=== PATIENT | female | born 1980 | race Caucasian/White ===

== ENCOUNTER 2016-10-05 23:47 | Emergency (ER) | payer OTHER ==
[~2016-10-05] VITALS: Ht 154.9 cm; Wt 65.0 kg
[~2016-10-05 23:47] MED LIST: AUGMENTIN875 MG PO; BACTRIM,SEPT1 TABLET PO; BENTYL10 MG PO; CARAFATE1 GM PO; CLEOCIN300 MG PO; DILAUDID2 MG PO; DOXYCYCLINE HY100 MG PO; FE C TABLET1 EACH PO; FOLIC ACID1 MG PO; IBUPROFEN800 MG PO; LOPRESSOR50 MG PO; LORAZEPAM0.5 MG PO; LORTAB 5-325 M1 EACH PO; METOPROLOL TART25 MG PO; METOPROLOL TART50 MG PO; MOTRIN IB200 MG PO; OXYCODONE-APAP1 EACH PO; PERCOCET 5/31 TABLET PO; PROTONIX40 MG PO; SPIRIVA RESPIMAT4 GM IH; TOPAMAX25 MG PO; TRILEPTAL300 MG PO; TYLENOL REGULA325 MG PO; VENLAFAXINE HC150 M1 PO; ZOFRAN ODT4 MG PO; ZOFRAN4 MG PO
[2016-10-06 02:09] VITALS: BP 128/96
== END 2016-10-06 02:15 | disposition home or self-care (01) ==
LOC: EME 23:47
DX: S00.93XA Contusion of unspecified part of head, initial encounter (principal); Y04.0XXA Assault by unarmed brawl or fight, initial encounter; F10.129 Alcohol abuse with intoxication, unspecified; H93.19 Tinnitus, unspecified ear; I10 Essential (primary) hypertension; R56.9 Unspecified convulsions; Z86.73 Personal history of transient ischemic attack (TIA), and cerebral infarction without residual deficits; Z86.711 Personal history of pulmonary embolism; Z98.84 Bariatric surgery status; F17.200 Nicotine dependence, unspecified, uncomplicated
CPT/HCPCS: 70450; 99281; 99284

== ENCOUNTER 2016-12-08 14:45 | Inpatient (IN) | payer OTHER ==
[~2016-12-08] VITALS: Ht 160 cm; Wt 58.8 kg
[2016-12-08] MEDS ORDERED: TRILEPTAL300 MG PO (14:55)
[2016-12-08] MEDS ORDERED: LOPRESSOR25 MG PO (14:55)
[2016-12-08] MEDS ORDERED: NORVASC5 MG PO (14:56)
[2016-12-08 15:34] LABS: HEMATOCRIT 35.3 % (36.0-46.0); MCHC 32.3 G/DL (30.0-36.0); MCV 83.5 FL (83-99); MEAN PLAT.VOLUME 9.3 uM^3 (9.5-12.4); PLATELET COUNT 195 K/uL (156-360); RBC DIS.WIDTH-CV 19.5 % (11.8-14.6); RBC DIS.WIDTH-SD 58.5 % (39-53); RED BLOOD COUNT 4.23 M/uL (3.80-5.20); WHITE BLOOD COUNT 3.8 K/uL (4.1-10.2)
[2016-12-08 15:42] LABS: CHLORIDE 102 mEq/L (99-109); POTASSIUM 3.5 mEq/L (3.7-5.4); SODIUM 137 mEq/L (136-147)
[2016-12-08 15:44] LABS: GLUCOSE 108 mg/dL (70-99)
[2016-12-08 15:45] LABS: ANION GAP 16 MEQ/L (2-14)
[2016-12-08 15:46] LABS: TOTAL BILIRUBIN 0.8 mg/dL (0.0-1.0)
[2016-12-08 15:48] LABS: ALKALINE PHOSPHATASE 129 IU/L (3-129); GFR ESTIMATE (CALCULATED) > 59 mL/min/
[2016-12-08 15:49] LABS: UREA NITROGEN (BUN) 14 mg/dL (9-23)
[2016-12-08 15:51] LABS: LIPASE 422 U/L (1.0-51.0)
[2016-12-08 15:55] LABS: ADD MIUA? YES; BILIRUBIN NEGATIVE; BLOOD MODERATE; COLOR AMBER ((YELLOW)); GLUCOSE (STRIP) NEGATIVE; KETONES 20; LEUKOCYTES TRACE; NITRITE POSITIVE; PROTEIN (STRIP) 100
[2016-12-08 15:59] LABS: QUANTITATIVE HCG 4.7 MIU/ML
[2016-12-08] MEDS ORDERED: FOLIC ACID1 MG PO (16:13)
[2016-12-08] MEDS ORDERED: SPIRIVA RESPIMAT4 GM PO (16:14)
[2016-12-08] MEDS ORDERED: LORAZEPAM0.5 MG PO (16:14)
[2016-12-08] MEDS ORDERED: MACROBID100 MG PO (16:14)
[2016-12-08 16:21] LABS: BACTERIA 2+ /HPF; EPITHELIAL CELLS 2+ /HPF; MUCUS 3+ /LPF; RED BLOOD CELLS 40-50 /HPF (0-5); UCUL ADDED? YES
[2016-12-08 19:21] VITALS: BP 123/86
[2016-12-09] VITALS: BP 110/88
[2016-12-09 03:42] VITALS: BP 114/77
[2016-12-09 07:00] VITALS: BP 125/89
[2016-12-09 07:15] LABS: ANION GAP 10 MEQ/L (2-14); CHLORIDE 102 MEQ/L (99-109); GFR ESTIMATE (CALCULATED) > 59 mL/min/; LIPASE 472 U/L (1.0-51.0); POTASSIUM 3.4 MEQ/L (3.7-5.4); SAMPLE HEMOLYSIS CHECK 0; SAMPLE ICTERIC CHECK 0; SAMPLE LIPEMIA CHECK 0; SODIUM 136 MEQ/L (136-147); UREA NITROGEN (BUN) 14 mg/dL (9-23)
[2016-12-09 07:20] LABS: GLUCOSE 80 mg/dL (70-99)
[2016-12-09 07:28] LABS: HEMATOCRIT 28.5 % (36.0-46.0); MCH 27.2 PG (29.0-34.0); MCHC 31.9 G/DL (30.0-36.0); MCV 85.1 FL (83-99); RBC DIS.WIDTH-CV 19.6 % (11.8-14.6); RBC DIS.WIDTH-SD 60.6 % (39-53); RED BLOOD COUNT 3.35 M/uL (3.80-5.20); WHITE BLOOD COUNT 2.6 K/uL (4.1-10.2)
[2016-12-09 08:00] LABS: MEAN PLAT.VOLUME 10.1 uM^3 (9.5-12.4); PLATELET COUNT 125 K/uL (156-360)
[2016-12-09 11:42] VITALS: BP 140/97
[2016-12-09 14:54] LABS: POINT-OF-CARE METER ID UU14174225
[2016-12-09 15:53] VITALS: BP 149/105
[2016-12-09 19:29] VITALS: BP 143/91
[2016-12-10] VITALS (7 sets, daily range): BP systolic 130–149; BP diastolic 82–98
[2016-12-11 03:59] VITALS: BP 137/89
[2016-12-11 07:25] VITALS: BP 141/98
[2016-12-11] MEDS ORDERED: ENDOCET 5-3251 EACH PO (11:01)
== END 2016-12-11 13:54 | disposition home or self-care (01) | DRG 439 ==
LOC: EME → EDBD 14:45 → 5SOUTH 16:58 → EDOF 16:58 → 5SOUTH 19:16
PROVIDERS: Internal Medicine; Nurse Practitioner Family
DX: K85.20 Alcohol induced acute pancreatitis without necrosis or infection (principal); N39.0 Urinary tract infection, site not specified; B96.20 Unspecified Escherichia coli [E. coli] as the cause of diseases classified elsewhere; F10.24 Alcohol dependence with alcohol-induced mood disorder; R74.0 Nonspecific elevation of levels of transaminase and lactic acid dehydrogenase [LDH]; K70.0 Alcoholic fatty liver; K25.9 Gastric ulcer, unspecified as acute or chronic, without hemorrhage or perforation; I10 Essential (primary) hypertension; J45.909 Unspecified asthma, uncomplicated; G40.909 Epilepsy, unspecified, not intractable, without status epilepticus; F17.210 Nicotine dependence, cigarettes, uncomplicated; Z86.73 Personal history of transient ischemic attack (TIA), and cerebral infarction without residual deficits; Z98.84 Bariatric surgery status; Z86.711 Personal history of pulmonary embolism
CPT/HCPCS: 74177; 80048; 80053; 81003; 82948; 83690; 84702; 85027; 87040; 87077; 87086; 87186; 99281; 99285; J1650; J1885; J1956; J2270; J2405; J7030

== ENCOUNTER 2017-01-30 14:39 | Emergency (ER) | payer OTHER ==
[~2017-01-30] VITALS: Ht 154.9 cm; Wt 65.0 kg
[~2017-01-30 14:39] MED LIST changes: +ENDOCET 5-3251 EACH PO; +LOPRESSOR25 MG PO; +MACROBID100 MG PO; +NORVASC5 MG PO; +SPIRIVA RESPIMAT4 GM PO
[2017-01-30 15:45] VITALS: BP 102/76
== END 2017-01-30 16:15 | disposition left against medical advice (07) ==
LOC: EME → EDBD 14:39 → EME 14:39
DX: T40.1X1A Poisoning by heroin, accidental (unintentional), initial encounter (principal); I10 Essential (primary) hypertension; Z87.442 Personal history of urinary calculi; R56.9 Unspecified convulsions; Z86.73 Personal history of transient ischemic attack (TIA), and cerebral infarction without residual deficits; Z86.711 Personal history of pulmonary embolism; Z98.84 Bariatric surgery status; F17.200 Nicotine dependence, unspecified, uncomplicated
CPT/HCPCS: 99281; 99284; J2310

== ENCOUNTER 2017-02-13 17:01 | Inpatient (IN) | payer OTHER ==
[~2017-02-13] VITALS: Ht 157.5 cm; Wt 53.3 kg
[2017-02-13 17:41] LABS: MCH 28.6 PG (29.0-34.0); MCHC 32.5 G/DL (30.0-36.0); PLATELET COUNT 186 K/uL (156-360); RBC DIS.WIDTH-CV 20.1 % (11.8-14.6); RBC DIS.WIDTH-SD 63.4 % (39-53); RED BLOOD COUNT 4.09 M/uL (3.80-5.20); WHITE BLOOD COUNT 3.7 K/uL (4.1-10.2)
[2017-02-13 17:50] LABS: CHLORIDE 104 mEq/L (99-109); SODIUM 142 mEq/L (136-147)
[2017-02-13 17:52] LABS: GLUCOSE 89 mg/dL (70-99)
[2017-02-13 17:53] LABS: ANION GAP 17 MEQ/L (2-14)
[2017-02-13 17:56] LABS: GFR ESTIMATE (CALCULATED) > 59 mL/min/
[2017-02-13 17:57] LABS: UREA NITROGEN (BUN) 11 mg/dL (9-23)
[2017-02-13 18:04] LABS: TROP-I INTERPRETATION NEGATIVE; TROPONIN-I < 0.01 ng/mL (0.0-0.30)
[2017-02-13 19:50] LABS: ALKALINE PHOSPHATASE 373 IU/L (3-129)
[2017-02-13 19:52] LABS: DIRECT BILIRUBIN 0.7 mg/dL (0.0-0.3)
[2017-02-13 20:55] LABS: LIPASE 488 U/L (1.0-51.0)
[2017-02-13 21:42] LABS: ADD MIUA? YES; BILIRUBIN NEGATIVE; BLOOD MODERATE; COLOR AMBER ((YELLOW)); GLUCOSE (STRIP) NEGATIVE; KETONES 5; LEUKOCYTES NEGATIVE; NITRITE NEGATIVE; PROTEIN (STRIP) 100; SPECIFIC GRAVITY 1.013 (1.000-1.030)
[2017-02-13 22:14] LABS: BACTERIA 2+ /HPF; EPITHELIAL CELLS 3+ /HPF; MUCUS 3+ /LPF; RED BLOOD CELLS 30-40 /HPF (0-5); WHITE BLOOD CELLS 0-5 /HPF (0-5)
[2017-02-14 03:18] LABS: MAGNESIUM 1.5 mg/dL (1.3-2.7)
[2017-02-14 03:44] VITALS: BP 118/70
[2017-02-14 05:30] LABS: EOSINOPHIL (%) 0.3 % (0-5); HEMATOCRIT 28.9 % (36.0-46.0); INSTRUMENT ABS NEUTROPHIL CT 2.2 K/uL; LYMPHOCYTE COUNT 0.6 K/uL (1.0-2.8); MCH 28.9 PG (29.0-34.0); MCHC 31.5 G/DL (30.0-36.0); MCV 91.7 FL (83-99); MEAN PLAT.VOLUME 9.4 uM^3 (9.5-12.4); MONOCYTE (%) 9.9 % (3-12); MONOCYTE COUNT 0.3 K/uL (0-0.8); NEUTROPHIL (%) 68.6 % (45-76); NEUTROPHIL COUNT 2.2 K/uL (1.8-6.4); PLATELET COUNT 137 K/uL (156-360); RBC DIS.WIDTH-CV 20.4 % (11.8-14.6); RED BLOOD COUNT 3.15 M/uL (3.80-5.20); WHITE BLOOD COUNT 3.1 K/uL (4.1-10.2)
[2017-02-14 05:49] LABS: ALKALINE PHOSPHATASE 285 IU/L (3-129); ANION GAP 22 MEQ/L (2-14); CHLORIDE 96 MEQ/L (99-109); GFR ESTIMATE (CALCULATED) > 59 mL/min/; LIPASE 281 U/L (1.0-51.0); POTASSIUM 3.1 MEQ/L (3.7-5.4); SAMPLE HEMOLYSIS CHECK 0; SAMPLE ICTERIC CHECK 0; SAMPLE LIPEMIA CHECK 0; SODIUM 134 MEQ/L (136-147); TOTAL BILIRUBIN 0.9 MG/DL (0.0-1.0); UREA NITROGEN (BUN) 11 mg/dL (9-23)
[2017-02-14 06:37] LABS: GLUCOSE 36 mg/dL (70-99)
[2017-02-14 06:39] VITALS: BP 134/71
[2017-02-14 08:22] LABS: MAGNESIUM 1.4 mg/dl (1.3-2.7)
[2017-02-14 14:39] LABS: POINT-OF-CARE METER ID UU13113725
[2017-02-14 15:00] VITALS: BP 138/81
[2017-02-14 23:55] VITALS: BP 148/96
[2017-02-15 00:37] LABS: POINT-OF-CARE METER ID UU13113725
[2017-02-15 03:29] VITALS: BP 130/86
[2017-02-15 06:56] VITALS: BP 126/90
[2017-02-15 07:47] LABS: HEMATOCRIT 27.7 % (36.0-46.0); MCHC 32.1 G/DL (30.0-36.0); MCV 90.2 FL (83-99); MEAN PLAT.VOLUME 10.2 uM^3 (9.5-12.4); PLATELET COUNT 174 K/uL (156-360); RBC DIS.WIDTH-CV 19.9 % (11.8-14.6); RBC DIS.WIDTH-SD 64.5 % (39-53); RED BLOOD COUNT 3.07 M/uL (3.80-5.20); WHITE BLOOD COUNT 2.5 K/uL (4.1-10.2)
[2017-02-15 08:43] LABS: ALKALINE PHOSPHATASE 218 IU/L (3-129); ANION GAP 9 MEQ/L (2-14); CHLORIDE 102 MEQ/L (99-109); GFR ESTIMATE (CALCULATED) > 59 mL/min/; LIPASE 302 U/L (1.0-51.0); POTASSIUM 3.4 MEQ/L (3.7-5.4); SAMPLE HEMOLYSIS CHECK 0; SAMPLE ICTERIC CHECK 0; SAMPLE LIPEMIA CHECK 0; SODIUM 137 MEQ/L (136-147); UREA NITROGEN (BUN) 5 mg/dL (9-23)
[2017-02-15 08:44] LABS: GLUCOSE 117 mg/dL (70-99); TOTAL BILIRUBIN 1.1 MG/DL (0.0-1.0)
[2017-02-15 09:21] LABS: MAGNESIUM 1.2 mg/dl (1.3-2.7)
[2017-02-15 10:15] LABS: POINT-OF-CARE METER ID UU13113725
[2017-02-15 11:00] VITALS: BP 119/82
[2017-02-15 11:18] LABS: ADD MIUA? YES; BILIRUBIN NEGATIVE; BLOOD NEGATIVE; COLOR AMBER ((YELLOW)); GLUCOSE (STRIP) NEGATIVE; KETONES NEGATIVE; LEUKOCYTES SMALL; NITRITE POSITIVE; PROTEIN (STRIP) NEGATIVE; SPECIFIC GRAVITY 1.009 (1.000-1.030); UROBILINOGEN 0.2 MG/DL (0.2-1.0)
[2017-02-15 11:39] LABS: AMPHETAMINES QUANT VALUE 0 NG/ML; BARBITUATES QUANT VALUE 0 NG/ML; BENZODIAZEPINES QUANT VALUE 0 NG/ML; BENZODIAZEPINES, URINE SCREEN Negative (200 ng/mL); MARIJUANA QUANT VALUE 0 NG/ML; PHENCYCLIDINE QUANT VALUE 0 NG/ML
[2017-02-15 13:20] LABS: BACTERIA 4+ /HPF; EPITHELIAL CELLS 1+ /HPF; MUCUS 2+ /LPF; RED BLOOD CELLS 0-5 /HPF (0-5); UCUL ADDED? YES
[2017-02-15 15:10] VITALS: BP 116/82
[2017-02-15 18:26] LABS: POINT-OF-CARE METER ID UU13113725
[2017-02-15 19:05] VITALS: BP 132/77
[2017-02-15 23:07] VITALS: BP 121/69
[2017-02-16 03:48] VITALS: BP 112/74
[2017-02-16 06:58] LABS: EOSINOPHIL (%) 3.2 % (0-5); EOSINOPHIL COUNT 0.1 K/uL (0-0.3); HEMATOCRIT 23.2 % (36.0-46.0); INSTRUMENT ABS NEUTROPHIL CT 0.7 K/uL; LYMPHOCYTE COUNT 0.7 K/uL (1.0-2.8); MCH 29.3 PG (29.0-34.0); MCHC 32.3 G/DL (30.0-36.0); MCV 90.6 FL (83-99); MEAN PLAT.VOLUME 9.8 uM^3 (9.5-12.4); MONOCYTE COUNT 0.2 K/uL (0-0.8); NEUTROPHIL (%) 41.2 % (45-76); NEUTROPHIL COUNT 0.7 K/uL (1.8-6.4); PLATELET COUNT 140 K/uL (156-360); RBC DIS.WIDTH-CV 20.4 % (11.8-14.6); RBC DIS.WIDTH-SD 67.8 % (39-53); RED BLOOD COUNT 2.56 M/uL (3.80-5.20); WHITE BLOOD COUNT 1.6 K/uL (4.1-10.2)
[2017-02-16 07:23] LABS: ALKALINE PHOSPHATASE 221 IU/L (3-129); ANION GAP 7 MEQ/L (2-14); CHLORIDE 108 MEQ/L (99-109); GFR ESTIMATE (CALCULATED) > 59 mL/min/; GLUCOSE 96 mg/dL (70-99); POTASSIUM 2.8 MEQ/L (3.7-5.4); SAMPLE HEMOLYSIS CHECK 0; SAMPLE ICTERIC CHECK 0; SAMPLE LIPEMIA CHECK 0; SODIUM 139 MEQ/L (136-147); TOTAL BILIRUBIN 0.9 MG/DL (0.0-1.0); UREA NITROGEN (BUN) 4 mg/dL (9-23)
[2017-02-16 07:26] LABS: MAGNESIUM 1.4 mg/dl (1.3-2.7)
[2017-02-16 08:00] VITALS: BP 108/74
[2017-02-16 09:55] LABS: INTER. NORMALIZED RATIO 1.1; PROTHROMBIN TIME 11.2 (9.2-11.2); PTT 32.4 (25-32)
[2017-02-16 10:22] LABS: POINT-OF-CARE METER ID UU13113725
[2017-02-16 11:10] VITALS: BP 110/76
[2017-02-16 14:21] LABS: POINT-OF-CARE METER ID UU13113725
[2017-02-16 14:43] LABS: HEMATOCRIT 26.1 % (36.0-46.0); MCH 29.1 PG (29.0-34.0); MCV 93.9 FL (83-99); MEAN PLAT.VOLUME 10.7 uM^3 (9.5-12.4); PLATELET COUNT 178 K/uL (156-360); RBC DIS.WIDTH-CV 20.5 % (11.8-14.6); RED BLOOD COUNT 2.78 M/uL (3.80-5.20)
[2017-02-16 15:20] VITALS: BP 112/74
[2017-02-16 17:58] LABS: POINT-OF-CARE METER ID UU13113725
[2017-02-16 19:25] VITALS: BP 130/90
[2017-02-16 23:12] VITALS: BP 110/80
[2017-02-17 03:30] VITALS: BP 135/95
[2017-02-17 07:19] VITALS: BP 134/74
[2017-02-17 07:28] LABS: HEMATOCRIT 24.7 % (36.0-46.0); MCH 29.4 PG (29.0-34.0); MCHC 31.6 G/DL (30.0-36.0); MCV 93.2 FL (83-99); MEAN PLAT.VOLUME 10.3 uM^3 (9.5-12.4); PLATELET COUNT 171 K/uL (156-360); RBC DIS.WIDTH-CV 20.8 % (11.8-14.6); RBC DIS.WIDTH-SD 71.6 % (39-53); RED BLOOD COUNT 2.65 M/uL (3.80-5.20)
[2017-02-17 07:33] LABS: WHITE BLOOD COUNT 1.9 K/uL (4.1-10.2)
[2017-02-17 07:37] LABS: ALKALINE PHOSPHATASE 233 IU/L (3-129); ANION GAP 7 MEQ/L (2-14); CHLORIDE 107 MEQ/L (99-109); GFR ESTIMATE (CALCULATED) > 59 mL/min/; GLUCOSE 105 mg/dL (70-99); LIPASE 169 U/L (1.0-51.0); SAMPLE HEMOLYSIS CHECK 0; SAMPLE ICTERIC CHECK 0; SAMPLE LIPEMIA CHECK 0; SODIUM 138 MEQ/L (136-147); TOTAL BILIRUBIN 0.8 MG/DL (0.0-1.0); UREA NITROGEN (BUN) 3 mg/dL (9-23)
[2017-02-17 07:40] LABS: POTASSIUM 3.9 MEQ/L (3.7-5.4)
[2017-02-17 09:08] LABS: INTER. NORMALIZED RATIO 1.1; PROTHROMBIN TIME 11.2 (9.2-11.2)
[2017-02-17 10:14] LABS: AMPHETAMINES QUANT VALUE 0 NG/ML; BARBITUATES QUANT VALUE 0 NG/ML; BENZODIAZEPINES QUANT VALUE 0 NG/ML; BENZODIAZEPINES, URINE SCREEN Negative (200 ng/mL); MARIJUANA QUANT VALUE 0 NG/ML; PHENCYCLIDINE QUANT VALUE 0 NG/ML
[2017-02-17 15:11] VITALS: BP 134/94
[2017-02-17 18:55] VITALS: BP 149/87
[2017-02-17 23:14] VITALS: BP 158/88
[2017-02-18 03:05] VITALS: BP 141/86
[2017-02-18 05:53] LABS: POINT-OF-CARE METER ID UU13113725
[2017-02-18 07:26] LABS: HEMATOCRIT 25.2 % (36.0-46.0); MCH 29.1 PG (29.0-34.0); MEAN PLAT.VOLUME 10.7 uM^3 (9.5-12.4); PLATELET COUNT 217 K/uL (156-360); RBC DIS.WIDTH-CV 21.1 % (11.8-14.6); RBC DIS.WIDTH-SD 73.3 % (39-53); RED BLOOD COUNT 2.68 M/uL (3.80-5.20); WHITE BLOOD COUNT 2.6 K/uL (4.1-10.2)
[2017-02-18 07:45] LABS: ALKALINE PHOSPHATASE 191 IU/L (3-129); C-REACTIVE PROTEIN 8.7 MG/L (0-10); DIRECT BILIRUBIN 0.3 mg/dL (0.0-0.3)
[2017-02-18 07:48] LABS: TOTAL BILIRUBIN 0.6 MG/DL (0.0-1.0)
[2017-02-18 07:53] VITALS: BP 136/87
[2017-02-18 08:23] LABS: POC NON-PRINT COM 1 ND
[2017-02-18 09:01] LABS: HBSG INDEX 0.25; HPCA INDEX 0.11
[2017-02-18 09:02] LABS: ANTI-HEPATITIS A VIRUS (IGM) Nonreactive; HAV INDEX 0.12
[2017-02-18 09:03] LABS: ANTI-HEPATITIS B CORE (IGM) Nonreactive; HBC IgM INDEX 0.08
[2017-02-18 12:14] VITALS: BP 127/90
[2017-02-18 14:23] LABS: POINT-OF-CARE METER ID UU13113725
[2017-02-18 16:55] VITALS: BP 131/91
[2017-02-18 17:23] LABS: POINT-OF-CARE METER ID UU13113725
[2017-02-18 19:16] VITALS: BP 161/88
[2017-02-18 22:06] LABS: POINT-OF-CARE METER ID UU13113725
[2017-02-18 22:57] VITALS: BP 159/87
[2017-02-19 07:33] LABS: EOSINOPHIL (%) 2.5 % (0-5); EOSINOPHIL COUNT 0.1 K/uL (0-0.3); HEMATOCRIT 27.4 % (36.0-46.0); IMMATURE GRANULOCYTE (%) 1.1 % (0.0-0.7); INSTRUMENT ABS NEUTROPHIL CT 1.2 K/uL; LYMPHOCYTE COUNT 1.2 K/uL (1.0-2.8); MCH 29.3 PG (29.0-34.0); MCHC 32.1 G/DL (30.0-36.0); MCV 91.3 FL (83-99); MONOCYTE (%) 10.9 % (3-12); MONOCYTE COUNT 0.3 K/uL (0-0.8); NEUTROPHIL (%) 42.3 % (45-76); NEUTROPHIL COUNT 1.2 K/uL (1.8-6.4); RBC DIS.WIDTH-CV 20.7 % (11.8-14.6); RBC DIS.WIDTH-SD 70.4 % (39-53); WHITE BLOOD COUNT 2.9 K/uL (4.1-10.2)
[2017-02-19 07:55] LABS: ALKALINE PHOSPHATASE 171 IU/L (3-129); ANION GAP 7 MEQ/L (2-14); CHLORIDE 108 MEQ/L (99-109); DIRECT BILIRUBIN 0.2 mg/dL (0.0-0.3); GFR ESTIMATE (CALCULATED) > 59 mL/min/; GLUCOSE 96 mg/dL (70-99); POTASSIUM 3.9 MEQ/L (3.7-5.4); SAMPLE HEMOLYSIS CHECK 0; SAMPLE ICTERIC CHECK 0; SAMPLE LIPEMIA CHECK 0; SODIUM 141 MEQ/L (136-147); TOTAL BILIRUBIN 0.5 MG/DL (0.0-1.0); UREA NITROGEN (BUN) 2 mg/dL (9-23)
[2017-02-19 08:28] LABS: HEMATOLOGY COMMENT 1 SMEAR COMPATIBLE; MEAN PLAT.VOLUME 10.5 uM^3 (9.5-12.4); PLAT.SUFFICIENCY ADEQUATE; PLATELET COUNT 169 K/uL (156-360)
[2017-02-19 10:20] LABS: POINT-OF-CARE METER ID UU13113725
[2017-02-19 14:33] LABS: POINT-OF-CARE METER ID UU13113725
[2017-02-19 15:44] VITALS: BP 130/85
[2017-02-20 00:02] VITALS: BP 140/91
[2017-02-20 07:11] VITALS: BP 123/82
[2017-02-20 07:43] LABS: EOSINOPHIL (%) 2.2 % (0-5); EOSINOPHIL COUNT 0.1 K/uL (0-0.3); HEMATOCRIT 24.4 % (36.0-46.0); IMMATURE GRANULOCYTE (%) 0.3 % (0.0-0.7); INSTRUMENT ABS NEUTROPHIL CT 1.8 K/uL; LYMPHOCYTE COUNT 0.9 K/uL (1.0-2.8); MCH 29.6 PG (29.0-34.0); MCHC 31.1 G/DL (30.0-36.0); MCV 94.9 FL (83-99); MEAN PLAT.VOLUME 10.6 uM^3 (9.5-12.4); MONOCYTE (%) 12.4 % (3-12); MONOCYTE COUNT 0.4 K/uL (0-0.8); NEUTROPHIL (%) 56.2 % (45-76); NEUTROPHIL COUNT 1.8 K/uL (1.8-6.4); RBC DIS.WIDTH-CV 21.2 % (11.8-14.6); RBC DIS.WIDTH-SD 75.1 % (39-53); RED BLOOD COUNT 2.57 M/uL (3.80-5.20); WHITE BLOOD COUNT 3.2 K/uL (4.1-10.2)
[2017-02-20 07:57] LABS: PLATELET COUNT 233 K/uL (156-360)
[2017-02-20 08:16] LABS: ALKALINE PHOSPHATASE 165 IU/L (3-129); ANION GAP 7 MEQ/L (2-14); CHLORIDE 110 MEQ/L (99-109); DIRECT BILIRUBIN 0.2 mg/dL (0.0-0.3); GFR ESTIMATE (CALCULATED) > 59 mL/min/; GLUCOSE 87 mg/dL (70-99); SAMPLE HEMOLYSIS CHECK 0; SAMPLE ICTERIC CHECK 0; SAMPLE LIPEMIA CHECK 0; SODIUM 141 MEQ/L (136-147); TOTAL BILIRUBIN 0.4 MG/DL (0.0-1.0); UREA NITROGEN (BUN) 6 mg/dL (9-23)
[2017-02-20 11:20] LABS: POINT-OF-CARE METER ID UU13113725
[2017-02-20 15:16] VITALS: BP 131/91
[2017-02-20 15:42] LABS: POINT-OF-CARE METER ID UU13113725
[2017-02-20] MEDS ORDERED: NICOTINE PATCH1 EAC1 TD (16:34)
[2017-02-20] MEDS ORDERED: AMOX TR-K CLV1 EAC4 PO (16:34)
[2017-02-20] MEDS ORDERED: PANTOPRAZOLE SO40 MG PO (16:37)
[2017-02-20] MEDS ORDERED: LORAZEPAM0.5 MG PO (16:38)
[2017-02-20] MEDS ORDERED: HYDROMORPHONE HC2 MG PO (16:38)
[2017-02-20] MEDS ORDERED: Thiamine,Vitamin B1 PO (16:38)
[2017-02-20] MEDS ORDERED: LASIX40 MG PO (16:43)
== END 2017-02-20 18:36 | disposition home or self-care (01) | DRG 439 ==
LOC: EME 17:01 → RME 17:01 → EDOF 02-14 02:23 → 5EAST 02-14 02:23
PROVIDERS: Emergency Medicine; Hospitalist; Internal Medicine; Internal Medicine Gastroenterology; Physician Assistant
PROC: HZ2ZZZZ Detoxification Services for Substance Abuse Treatment (ICD-10-PCS; principal; 2017-02-14)
DX: K85.20 Alcohol induced acute pancreatitis without necrosis or infection (principal); N39.0 Urinary tract infection, site not specified; Y90.7 Blood alcohol level of 200-239 mg/100 ml; Z91.128 Patient's intentional underdosing of medication regimen for other reason; Z91.14 Patient's other noncompliance with medication regimen; I10 Essential (primary) hypertension; Z98.84 Bariatric surgery status; Z86.711 Personal history of pulmonary embolism; F19.10 Other psychoactive substance abuse, uncomplicated; Z88.0 Allergy status to penicillin; F17.210 Nicotine dependence, cigarettes, uncomplicated; K70.10 Alcoholic hepatitis without ascites; F10.229 Alcohol dependence with intoxication, unspecified; D64.9 Anemia, unspecified; D72.819 Decreased white blood cell count, unspecified; Z59.0 Homelessness; Z88.5 Allergy status to narcotic agent; Z91.013 Allergy to seafood; F41.9 Anxiety disorder, unspecified; J45.909 Unspecified asthma, uncomplicated; I69.398 Other sequelae of cerebral infarction; R56.9 Unspecified convulsions
CPT/HCPCS: 71020; 74177; 76705; 80048; 80053; 80074; 80076; 80306 90; 81003; 82272; 82948; 83690; 83735; 84484; 85025; 85027; 85610; 85730; 86140; 87040; 87077; 87086; 87186; 93005; 93970; 94640; 94640 76; 99281; 99285; C9113; G0480; J0696; J1170; J1650; J1940; J2060; J2270; J2405; J2765; J3411; J3475; J3480; J7030; J7050; J7120

== ENCOUNTER 2017-03-02 19:33 | Emergency (ER) | payer OTHER ==
[~2017-03-02] VITALS: Ht 154.9 cm; Wt 63.6 kg
[~2017-03-02 19:33] MED LIST changes: +AMOX TR-K CLV1 EAC4 PO; +HYDROMORPHONE HC2 MG PO; +LASIX40 MG PO; +NICOTINE PATCH1 EAC1 TD; +PANTOPRAZOLE SO40 MG PO; +Thiamine,Vitamin B1 PO
[2017-03-03 00:04] LABS: HEMATOCRIT 27.7 % (36.0-46.0); MCH 29.4 PG (29.0-34.0); MCHC 32.1 G/DL (30.0-36.0); MCV 91.4 FL (83-99); MEAN PLAT.VOLUME 9.4 uM^3 (9.5-12.4); PLATELET COUNT 264 K/uL (156-360); RBC DIS.WIDTH-CV 21.1 % (11.8-14.6); RBC DIS.WIDTH-SD 70.5 % (39-53); RED BLOOD COUNT 3.03 M/uL (3.80-5.20)
[2017-03-03 00:17] LABS: CHLORIDE 109 mEq/L (99-109); SODIUM 146 mEq/L (136-147)
[2017-03-03 00:20] LABS: GLUCOSE 54 mg/dL (70-99)
[2017-03-03 00:21] LABS: ANION GAP 14 MEQ/L (2-14); TOTAL BILIRUBIN 0.5 mg/dL (0.0-1.0)
[2017-03-03 00:22] LABS: SERUM ETHYL ALCOHOL 265 mg/dL
[2017-03-03 00:23] LABS: ALKALINE PHOSPHATASE 230 IU/L (3-129); GFR ESTIMATE (CALCULATED) > 59 mL/min/
[2017-03-03 00:24] LABS: UREA NITROGEN (BUN) 4 mg/dL (9-23)
[2017-03-03 00:27] LABS: LIPASE 207 U/L (1.0-51.0)
[2017-03-03 01:31] LABS: ADD MIUA? YES; BILIRUBIN NEGATIVE; BLOOD NEGATIVE; COLOR YELLOW ((YELLOW)); GLUCOSE (STRIP) NEGATIVE; KETONES 5; LEUKOCYTES SMALL; NITRITE POSITIVE; PROTEIN (STRIP) 30; SPECIFIC GRAVITY 1.014 (1.000-1.030)
[2017-03-03 01:43] LABS: BACTERIA 3+ /HPF; EPITHELIAL CELLS 1+ /HPF; MUCUS 3+ /LPF; RED BLOOD CELLS 0-5 /HPF (0-5); UCUL ADDED? YES; WHITE BLOOD CELLS 15-20 /HPF (0-5)
[2017-03-03] MEDS ORDERED: MACROBID100 MG PO (06:48)
[2017-03-03 11:40] VITALS: BP 135/84
== END 2017-03-03 12:27 | disposition home or self-care (01) ==
LOC: EME 19:33
PROVIDERS: Emergency Medicine
DX: G89.29 Other chronic pain (principal); M54.5 Low back pain; N30.01 Acute cystitis with hematuria; F10.10 Alcohol abuse, uncomplicated; R94.5 Abnormal results of liver function studies; E87.6 Hypokalemia; D64.9 Anemia, unspecified; I10 Essential (primary) hypertension; R56.9 Unspecified convulsions; Y90.8 Blood alcohol level of 240 mg/100 ml or more; Z87.442 Personal history of urinary calculi; Z86.73 Personal history of transient ischemic attack (TIA), and cerebral infarction without residual deficits; Z88.0 Allergy status to penicillin; Z88.6 Allergy status to analgesic agent; F17.200 Nicotine dependence, unspecified, uncomplicated
CPT/HCPCS: 70450; 72100; 80053; 81003; 83690; 85027; 87077; 87086; 87186; 99281; 99285; G0480

== ENCOUNTER 2017-05-06 21:37 | Inpatient (IN) | payer OTHER ==
[~2017-05-06] VITALS: Ht 154.9 cm; Wt 62.3 kg
[2017-05-06 22:46] LABS: INTER. NORMALIZED RATIO 1.7; PROTHROMBIN TIME 19.5 SEC (10.2-12.9)
[2017-05-06 22:48] LABS: PTT 38.9 SEC (25-37)
[2017-05-06 22:49] LABS: CHLORIDE 108 mEq/L (99-109); SODIUM 139 mEq/L (136-147)
[2017-05-06 22:51] LABS: GLUCOSE 115 mg/dL (70-99)
[2017-05-06 22:53] LABS: ANION GAP 22 MEQ/L (2-14); EOSINOPHIL (%) 0.1 % (0-5); HEMATOCRIT 14.3 % (36.0-46.0); IMMATURE GRANULOCYTE (%) 0.7 % (0.0-0.7); IMMATURE GRANULOCYTE COUNT 0.1 K/uL; INSTRUMENT ABS NEUTROPHIL CT 5.7 K/uL; LYMPHOCYTE COUNT 0.5 K/uL (1.0-2.8); MCH 37.5 PG (29.0-34.0); MCHC 31.5 G/DL (30.0-36.0); MCV 119.2 FL (83-99); MEAN PLAT.VOLUME 10.4 uM^3 (9.5-12.4); MONOCYTE (%) 6.7 % (3-12); MONOCYTE COUNT 0.5 K/uL (0-0.8); NEUTROPHIL (%) 85.2 % (45-76); NEUTROPHIL COUNT 5.7 K/uL (1.8-6.4); PLATELET COUNT 176 K/uL (156-360); POTASSIUM 2.2 mEq/L (3.7-5.4); RBC DIS.WIDTH-CV 15.1 % (11.8-14.6); RBC DIS.WIDTH-SD 65.3 % (39-53); TOTAL BILIRUBIN 7.7 mg/dL (0.0-1.0); WHITE BLOOD COUNT 6.7 K/uL (4.1-10.2)
[2017-05-06 22:55] LABS: ALKALINE PHOSPHATASE 192 IU/L (3-129); GFR ESTIMATE (CALCULATED) > 59 mL/min/
[2017-05-06 22:56] LABS: UREA NITROGEN (BUN) 5 mg/dL (9-23)
[2017-05-06 23:25] VITALS: BP 84/64
[2017-05-06 23:48] VITALS: BP 96/67
[2017-05-07] VITALS (38 sets, daily range): BP systolic 90–130; BP diastolic 57–95
[2017-05-07] MEDS ORDERED: MOTRIN800 MG PO (00:46)
[2017-05-07 02:46] LABS: METH RESISTANT S AUREUS PCR NEGATIVE (NEGATIVE)
[2017-05-07 02:47] LABS: PROBE CHECK PASS; SPECIMEN PROCESSING CONTROL PASS
[2017-05-07 07:55] LABS: EOSINOPHIL (%) 0.1 % (0-5); HEMATOCRIT 18.1 % (36.0-46.0); IMMATURE GRANULOCYTE (%) 0.7 % (0.0-0.7); IMMATURE GRANULOCYTE COUNT 0.1 K/uL; INSTRUMENT ABS NEUTROPHIL CT 5.1 K/uL; LYMPHOCYTE COUNT 1.2 K/uL (1.0-2.8); MCH 31.3 PG (29.0-34.0); MCHC 34.3 G/DL (30.0-36.0); MONOCYTE (%) 7.1 % (3-12); MONOCYTE COUNT 0.5 K/uL (0-0.8); NEUTROPHIL (%) 74.7 % (45-76); NEUTROPHIL COUNT 5.1 K/uL (1.8-6.4); NRBC (%) 0.3 /100 WBC (0-0); RBC DIS.WIDTH-CV 23.3 % (11.8-14.6); RBC DIS.WIDTH-SD 72.3 % (39-53); WHITE BLOOD COUNT 6.9 K/uL (4.1-10.2)
[2017-05-07 07:56] LABS: RED BLOOD COUNT 1.98 M/uL (3.80-5.20)
[2017-05-07 07:58] LABS: MCV 91.4 FL (83-99)
[2017-05-07 08:12] LABS: MEAN PLAT.VOLUME 10.4 uM^3 (9.5-12.4); PLAT.SUFFICIENCY DECREASED
[2017-05-07 08:27] LABS: ALKALINE PHOSPHATASE 122 IU/L (3-129); ANION GAP 10 MEQ/L (2-14); CHLORIDE 105 MEQ/L (99-109); GFR ESTIMATE (CALCULATED) > 59 mL/min/; GLUCOSE 128 mg/dL (70-99); SAMPLE HEMOLYSIS CHECK 0; SAMPLE ICTERIC CHECK 2; SAMPLE LIPEMIA CHECK 0; SODIUM 136 MEQ/L (136-147); UREA NITROGEN (BUN) 5 mg/dL (9-23)
[2017-05-07 08:34] LABS: PLATELET COUNT 122 K/uL (156-360)
[2017-05-07 08:40] LABS: POTASSIUM 2.8 MEQ/L (3.7-5.4)
[2017-05-07 09:05] LABS: MAGNESIUM 1.1 mg/dl (1.3-2.7)
[2017-05-07 09:32] LABS: ADD MIUA? YES; BILIRUBIN MODERATE; BLOOD LARGE; COLOR AMBER ((YELLOW)); GLUCOSE (STRIP) NEGATIVE; KETONES NEGATIVE; LEUKOCYTES NEGATIVE; NITRITE POSITIVE; PROTEIN (STRIP) 100; SPECIFIC GRAVITY 1.018 (1.000-1.030)
[2017-05-07 10:19] LABS: BACTERIA 3+ /HPF; EPITHELIAL CELLS 2+ /HPF; MUCUS NONE SEEN /LPF; RED BLOOD CELLS 40-50 /HPF (0-5); UCUL ADDED? YES; WHITE BLOOD CELLS 0-5 /HPF (0-5)
[2017-05-07 10:20] LABS: CASTS NONE SEEN /LPF; ICTOTEST POSITIVE
[2017-05-07 15:56] LABS: EOSINOPHIL (%) 0.7 % (0-5); HEMATOCRIT 21.9 % (36.0-46.0); IMMATURE GRANULOCYTE (%) 1.1 % (0.0-0.7); IMMATURE GRANULOCYTE COUNT 0.1 K/uL; INSTRUMENT ABS NEUTROPHIL CT 3.8 K/uL; LYMPHOCYTE COUNT 1.3 K/uL (1.0-2.8); MCH 30.6 PG (29.0-34.0); MCHC 34.7 G/DL (30.0-36.0); MCV 88.3 FL (83-99); MEAN PLAT.VOLUME 10.5 uM^3 (9.5-12.4); MONOCYTE COUNT 0.4 K/uL (0-0.8); NEUTROPHIL (%) 67.3 % (45-76); NEUTROPHIL COUNT 3.8 K/uL (1.8-6.4); NRBC (%) 0.4 /100 WBC (0-0); PLATELET COUNT 104 K/uL (156-360); RBC DIS.WIDTH-SD 48.8 % (39-53); WHITE BLOOD COUNT 5.6 K/uL (4.1-10.2)
[2017-05-07 16:16] LABS: RED BLOOD COUNT 2.48 M/uL (3.80-5.20)
[2017-05-07 19:04] LABS: EOSINOPHIL (%) 0.8 % (0-5); EOSINOPHIL COUNT 0.1 K/uL (0-0.3); HEMATOCRIT 27.4 % (36.0-46.0); IMMATURE GRANULOCYTE (%) 1.1 % (0.0-0.7); IMMATURE GRANULOCYTE COUNT 0.1 K/uL; INSTRUMENT ABS NEUTROPHIL CT 4.5 K/uL; LYMPHOCYTE COUNT 1.2 K/uL (1.0-2.8); MCH 31.3 PG (29.0-34.0); MCHC 35.8 G/DL (30.0-36.0); MCV 87.5 FL (83-99); MEAN PLAT.VOLUME 10.9 uM^3 (9.5-12.4); MONOCYTE (%) 5.4 % (3-12); MONOCYTE COUNT 0.3 K/uL (0-0.8); NEUTROPHIL (%) 72.7 % (45-76); NEUTROPHIL COUNT 4.5 K/uL (1.8-6.4); NRBC (%) 0.7 /100 WBC (0-0); PLATELET COUNT 130 K/uL (156-360); RBC DIS.WIDTH-CV 20.5 % (11.8-14.6); RBC DIS.WIDTH-SD 49.5 % (39-53); WHITE BLOOD COUNT 6.2 K/uL (4.1-10.2)
[2017-05-07 19:05] LABS: RED BLOOD COUNT 3.13 M/uL (3.80-5.20)
[2017-05-07 19:23] LABS: ANION GAP 10 MEQ/L (2-14); CHLORIDE 104 MEQ/L (99-109); SAMPLE HEMOLYSIS CHECK 0; SAMPLE ICTERIC CHECK 2; SAMPLE LIPEMIA CHECK 0; SODIUM 133 MEQ/L (136-147)
[2017-05-07 20:07] LABS: GFR ESTIMATE (CALCULATED) > 59 mL/min/; UREA NITROGEN (BUN) 6 mg/dL (9-23)
[2017-05-07 20:08] LABS: GLUCOSE 95 mg/dL (70-99)
[2017-05-08] VITALS (18 sets, daily range): BP systolic 82–115; BP diastolic 52–86
[2017-05-08 05:04] LABS: HEMATOCRIT 23.5 % (36.0-46.0); MCH 29.9 PG (29.0-34.0); MCHC 34.5 G/DL (30.0-36.0); MCV 86.7 FL (83-99); MEAN PLAT.VOLUME 10.4 uM^3 (9.5-12.4); NRBC (%) 0.4 /100 WBC (0-0); PLATELET COUNT 107 K/uL (156-360); RBC DIS.WIDTH-CV 19.9 % (11.8-14.6); RBC DIS.WIDTH-SD 47.8 % (39-53); RED BLOOD COUNT 2.71 M/uL (3.80-5.20); WHITE BLOOD COUNT 5.6 K/uL (4.1-10.2)
[2017-05-08 05:17] LABS: CHLORIDE 106 mEq/L (99-109); POTASSIUM 3.5 mEq/L (3.7-5.4); SODIUM 137 mEq/L (136-147)
[2017-05-08 05:18] LABS: GLUCOSE 73 mg/dL (70-99)
[2017-05-08 05:19] LABS: CHLORIDE 106 mEq/L (99-109)
[2017-05-08 05:20] LABS: ANION GAP 9 MEQ/L (2-14); POTASSIUM 3.4 mEq/L (3.7-5.4); SODIUM 136 mEq/L (136-147)
[2017-05-08 05:22] LABS: GFR ESTIMATE (CALCULATED) > 59 mL/min/; GLUCOSE 72 mg/dL (70-99)
[2017-05-08 05:23] LABS: ANION GAP 8 MEQ/L (2-14); UREA NITROGEN (BUN) 5 mg/dL (9-23)
[2017-05-08 05:25] LABS: GFR ESTIMATE (CALCULATED) > 59 mL/min/
[2017-05-08 05:27] LABS: UREA NITROGEN (BUN) 5 mg/dL (9-23)
[2017-05-08 05:29] LABS: ALKALINE PHOSPHATASE 138 IU/L (3-129); TOTAL BILIRUBIN 10.7 mg/dL (0.0-1.0)
[2017-05-08 06:04] LABS: MAGNESIUM 1.8 mg/dL (1.3-2.7)
[2017-05-09 00:28] VITALS: BP 107/80
[2017-05-09 04:03] VITALS: BP 109/69
[2017-05-09 08:47] VITALS: BP 105/57
[2017-05-09 15:57] VITALS: BP 104/66
[2017-05-09 17:56] LABS: HEMATOCRIT 25.8 % (36.0-46.0); MCH 32.2 PG (29.0-34.0); MCHC 35.3 G/DL (30.0-36.0); MEAN PLAT.VOLUME 10.4 uM^3 (9.5-12.4); NRBC (%) 0.3 /100 WBC (0-0); RED BLOOD COUNT 2.83 M/uL (3.80-5.20); WHITE BLOOD COUNT 7.8 K/uL (4.1-10.2)
[2017-05-09 17:57] LABS: MCV 91.2 FL (83-99); PLATELET COUNT 152 K/uL (156-360)
[2017-05-09 18:30] LABS: ANION GAP 7 MEQ/L (2-14); CHLORIDE 106 MEQ/L (99-109); GFR ESTIMATE (CALCULATED) > 59 mL/min/; POTASSIUM 3.4 MEQ/L (3.7-5.4); SAMPLE HEMOLYSIS CHECK 0; SAMPLE ICTERIC CHECK 3; SAMPLE LIPEMIA CHECK 0; SODIUM 134 MEQ/L (136-147); UREA NITROGEN (BUN) 4 mg/dL (9-23)
[2017-05-09 18:31] LABS: GLUCOSE 113 mg/dL (70-99)
[2017-05-09 19:12] VITALS: BP 107/61
[2017-05-10 00:30] VITALS: BP 103/65
[2017-05-10 05:43] VITALS: BP 99/55
[2017-05-10 07:52] VITALS: BP 102/63
[2017-05-10 08:21] LABS: HEMATOCRIT 24.8 % (36.0-46.0); MCH 32.2 PG (29.0-34.0); MCHC 35.5 G/DL (30.0-36.0); MCV 90.8 FL (83-99); MEAN PLAT.VOLUME 9.8 uM^3 (9.5-12.4); NRBC (%) 0.6 /100 WBC (0-0); PLATELET COUNT 139 K/uL (156-360); RBC DIS.WIDTH-CV 22.1 % (11.8-14.6); RBC DIS.WIDTH-SD 64.8 % (39-53); RED BLOOD COUNT 2.73 M/uL (3.80-5.20); WHITE BLOOD COUNT 4.9 K/uL (4.1-10.2)
[2017-05-10 08:33] LABS: INTER. NORMALIZED RATIO 1.2; PROTHROMBIN TIME 13.4 SEC (10.2-12.9)
[2017-05-10 08:36] LABS: PTT 26.7 SEC (25-37)
[2017-05-10 09:09] LABS: ANION GAP 7 MEQ/L (2-14); CHLORIDE 102 MEQ/L (99-109); GFR ESTIMATE (CALCULATED) > 59 mL/min/; GLUCOSE 129 mg/dL (70-99); SAMPLE HEMOLYSIS CHECK 0; SAMPLE ICTERIC CHECK 3; SAMPLE LIPEMIA CHECK 0; SODIUM 134 MEQ/L (136-147); UREA NITROGEN (BUN) 3 mg/dL (9-23)
[2017-05-10 09:12] LABS: ALKALINE PHOSPHATASE 154 IU/L (3-129); POTASSIUM 2.6 MEQ/L (3.7-5.4); TOTAL BILIRUBIN 13.2 MG/DL (0.0-1.0)
[2017-05-10 16:02] VITALS: BP 82/65
[2017-05-10 19:27] VITALS: BP 101/65
[2017-05-11 00:37] VITALS: BP 94/60
[2017-05-11 05:04] VITALS: BP 99/68
[2017-05-11 07:00] LABS: HEMATOCRIT 24.5 % (36.0-46.0); MCH 32.2 PG (29.0-34.0); MCHC 34.7 G/DL (30.0-36.0); MCV 92.8 FL (83-99); MEAN PLAT.VOLUME 9.7 uM^3 (9.5-12.4); PLATELET COUNT 140 K/uL (156-360); RBC DIS.WIDTH-CV 24.9 % (11.8-14.6); RBC DIS.WIDTH-SD 68.6 % (39-53); RED BLOOD COUNT 2.64 M/uL (3.80-5.20); WHITE BLOOD COUNT 4.3 K/uL (4.1-10.2)
[2017-05-11 07:40] LABS: ALKALINE PHOSPHATASE 141 IU/L (3-129); ANION GAP 6 MEQ/L (2-14); CHLORIDE 107 MEQ/L (99-109); GFR ESTIMATE (CALCULATED) > 59 mL/min/; GLUCOSE 100 mg/dL (70-99); MAGNESIUM 1.7 mg/dl (1.3-2.7); SAMPLE HEMOLYSIS CHECK 0; SAMPLE ICTERIC CHECK 2; SAMPLE LIPEMIA CHECK 0; SODIUM 137 MEQ/L (136-147); TOTAL BILIRUBIN 12.7 MG/DL (0.0-1.0); UREA NITROGEN (BUN) 3 mg/dL (9-23)
[2017-05-11 07:45] LABS: POTASSIUM 3.4 MEQ/L (3.7-5.4)
[2017-05-11 07:48] VITALS: BP 90/58
[2017-05-11 10:35] VITALS: BP 98/64
[2017-05-11 20:07] VITALS: BP 120/83
[2017-05-11 23:32] VITALS: BP 109/73
[2017-05-12 06:00] LABS: HEMATOCRIT 30.3 % (36.0-46.0); MCH 31.9 PG (29.0-34.0); MCV 93.8 FL (83-99); MEAN PLAT.VOLUME 10.2 uM^3 (9.5-12.4); PLATELET COUNT 148 K/uL (156-360); RBC DIS.WIDTH-CV 26.6 % (11.8-14.6); RBC DIS.WIDTH-SD 80.5 % (39-53); WHITE BLOOD COUNT 5.6 K/uL (4.1-10.2)
[2017-05-12 06:11] LABS: RED BLOOD COUNT 3.23 M/uL (3.80-5.20)
[2017-05-12 06:33] LABS: ANION GAP 13 MEQ/L (2-14); CHLORIDE 107 MEQ/L (99-109); GFR ESTIMATE (CALCULATED) > 59 mL/min/; GLUCOSE 112 mg/dL (70-99); MAGNESIUM 1.8 mg/dl (1.3-2.7); POTASSIUM 3.1 MEQ/L (3.7-5.4); SAMPLE HEMOLYSIS CHECK 0; SAMPLE ICTERIC CHECK 3; SAMPLE LIPEMIA CHECK 0; SODIUM 138 MEQ/L (136-147); UREA NITROGEN (BUN) 4 mg/dL (9-23)
[2017-05-12 08:05] VITALS: BP 117/82
[2017-05-12 12:40] LABS: DIRECT BILIRUBIN 7.7 mg/dL (0.0-0.3); TOTAL BILIRUBIN 14.3 MG/DL (0.0-1.0)
[2017-05-12 12:41] LABS: ALKALINE PHOSPHATASE 192 IU/L (3-129)
[2017-05-12 14:23] LABS: AMPHETAMINES QUANT VALUE 0 NG/ML; BARBITUATES QUANT VALUE 0 NG/ML; BENZODIAZEPINES QUANT VALUE 0 NG/ML; BENZODIAZEPINES, URINE SCREEN Negative (200 ng/mL); MARIJUANA QUANT VALUE 0 NG/ML; PHENCYCLIDINE QUANT VALUE 0 NG/ML
[2017-05-12 16:25] VITALS: BP 104/75
[2017-05-12 22:53] VITALS: BP 112/70
[2017-05-13 03:45] VITALS: BP 126/84
[2017-05-13 08:13] VITALS: BP 116/69
[2017-05-13 11:31] VITALS: BP 108/77
[2017-05-13 15:56] VITALS: BP 117/75
[2017-05-13 20:11] LABS: HEMATOCRIT 28.1 % (36.0-46.0); MCH 32.2 PG (29.0-34.0); MCHC 33.5 G/DL (30.0-36.0); MCV 96.2 FL (83-99); MEAN PLAT.VOLUME 9.8 uM^3 (9.5-12.4); RBC DIS.WIDTH-CV 26.8 % (11.8-14.6); RBC DIS.WIDTH-SD 84.5 % (39-53); RED BLOOD COUNT 2.92 M/uL (3.80-5.20); WHITE BLOOD COUNT 5.6 K/uL (4.1-10.2)
[2017-05-13 20:12] LABS: PLATELET COUNT 210 K/uL (156-360)
[2017-05-13 20:29] LABS: ALKALINE PHOSPHATASE 162 IU/L (3-129); ANION GAP 12 MEQ/L (2-14); CHLORIDE 110 MEQ/L (99-109); GFR ESTIMATE (CALCULATED) > 59 mL/min/; GLUCOSE 98 mg/dL (70-99); POTASSIUM 3.7 MEQ/L (3.7-5.4); SAMPLE HEMOLYSIS CHECK 1; SAMPLE ICTERIC CHECK 2; SAMPLE LIPEMIA CHECK 0; SODIUM 140 MEQ/L (136-147); TOTAL BILIRUBIN 12.3 MG/DL (0.0-1.0); UREA NITROGEN (BUN) 5 mg/dL (9-23)
[2017-05-14 00:29] VITALS: BP 108/72
[2017-05-14 03:56] VITALS: BP 109/74
[2017-05-14 07:07] LABS: MCH 32.3 PG (29.0-34.0); MCHC 34.4 G/DL (30.0-36.0); MEAN PLAT.VOLUME 10.2 uM^3 (9.5-12.4); PLATELET COUNT 199 K/uL (156-360); RBC DIS.WIDTH-CV 26.1 % (11.8-14.6); RBC DIS.WIDTH-SD 81.5 % (39-53); RED BLOOD COUNT 2.66 M/uL (3.80-5.20); WHITE BLOOD COUNT 4.8 K/uL (4.1-10.2)
[2017-05-14 07:38] LABS: ANION GAP 9 MEQ/L (2-14); CHLORIDE 109 MEQ/L (99-109); GFR ESTIMATE (CALCULATED) > 59 mL/min/; GLUCOSE 95 mg/dL (70-99); SAMPLE HEMOLYSIS CHECK 0; SAMPLE ICTERIC CHECK 2; SAMPLE LIPEMIA CHECK 0; SODIUM 139 MEQ/L (136-147); UREA NITROGEN (BUN) 5 mg/dL (9-23)
[2017-05-14 07:51] VITALS: BP 104/77
[2017-05-14 08:32] LABS: ALKALINE PHOSPHATASE 136 IU/L (3-129); DIRECT BILIRUBIN 7.4 mg/dL (0.0-0.3); TOTAL BILIRUBIN 12.3 MG/DL (0.0-1.0)
[2017-05-14 11:32] VITALS: BP 126/86
[2017-05-14 15:30] VITALS: BP 125/77
[2017-05-14 20:02] VITALS: BP 121/78
[2017-05-15] VITALS (7 sets, daily range): BP systolic 109–126; BP diastolic 67–87
[2017-05-15 08:45] LABS: HEMATOCRIT 26.4 % (36.0-46.0); MCH 32.5 PG (29.0-34.0); MCHC 34.1 G/DL (30.0-36.0); MCV 95.3 FL (83-99); MEAN PLAT.VOLUME 10.1 uM^3 (9.5-12.4); PLATELET COUNT 235 K/uL (156-360); RBC DIS.WIDTH-CV 25.3 % (11.8-14.6); RED BLOOD COUNT 2.77 M/uL (3.80-5.20); WHITE BLOOD COUNT 4.7 K/uL (4.1-10.2)
[2017-05-15 09:14] LABS: ALKALINE PHOSPHATASE 144 IU/L (3-129); ANION GAP 10 MEQ/L (2-14); CHLORIDE 107 MEQ/L (99-109); GFR ESTIMATE (CALCULATED) > 59 mL/min/; GLUCOSE 118 mg/dL (70-99); POTASSIUM 3.1 MEQ/L (3.7-5.4); SAMPLE HEMOLYSIS CHECK 0; SAMPLE ICTERIC CHECK 2; SAMPLE LIPEMIA CHECK 0; SODIUM 137 MEQ/L (136-147); TOTAL BILIRUBIN 12.3 MG/DL (0.0-1.0); UREA NITROGEN (BUN) 4 mg/dL (9-23)
[2017-05-16 03:56] VITALS: BP 123/84
[2017-05-16 06:57] LABS: ALKALINE PHOSPHATASE 132 IU/L (3-129); ANION GAP 8 MEQ/L (2-14); CHLORIDE 111 MEQ/L (99-109); GFR ESTIMATE (CALCULATED) > 59 mL/min/; GLUCOSE 89 mg/dL (70-99); POTASSIUM 3.2 MEQ/L (3.7-5.4); SAMPLE HEMOLYSIS CHECK 0; SAMPLE ICTERIC CHECK 2; SAMPLE LIPEMIA CHECK 0; SODIUM 137 MEQ/L (136-147); UREA NITROGEN (BUN) 3 mg/dL (9-23)
[2017-05-16 07:04] LABS: TOTAL BILIRUBIN 9.5 MG/DL (0.0-1.0)
[2017-05-16 07:53] LABS: MAGNESIUM 1.2 mg/dl (1.3-2.7)
[2017-05-16 08:38] VITALS: BP 105/76
[2017-05-16] MEDS ORDERED: XIFAXAN550 MG PO (10:50)
[2017-05-16] MEDS ORDERED: SPIRIVA1 INHALATI IH (10:51)
[2017-05-16] MEDS ORDERED: TRAZODONE HCL50 MG PO (10:52)
[2017-05-16] MEDS ORDERED: LACTULOSE10 GM/151 PO (10:53)
[2017-05-16] MEDS ORDERED: PANTOPRAZOLE SO40 MG PO (10:54)
[2017-05-16] MEDS ORDERED: FUROSEMIDE20 MG PO (10:55)
[2017-05-16] MEDS ORDERED: MAG-OXIDE400 MG PO (10:55)
[2017-05-16] MEDS ORDERED: K-DUR20 MEQ PO (10:56)
[2017-05-16] MEDS ORDERED: XANAX0.5 MG PO (10:57)
== END 2017-05-16 13:51 | disposition home or self-care (01) | DRG 377 ==
LOC: EME 21:37 → 4WEST 23:23 → EDOF 23:23 → ENRESERV 23:24 → 4WEST 05-07 01:10 → ENRESERV 05-08 14:30 → 4WEST 05-08 15:59 → 3EAST 05-08 17:06 → ENRESERV 05-13 18:22 → CANRESERV 05-13 18:22 → 3EAST 05-13 19:18
PROVIDERS: Emergency Medicine; Hospitalist; Internal Medicine; Internal Medicine Critical Care Medicine; Internal Medicine Gastroenterology; Physician Assistant
PROC: 30233N1 Transfusion of Nonautologous Red Blood Cells into Peripheral Vein, Percutaneous Approach (ICD-10-PCS; principal; 2017-05-06)
PROC: 30233K1 Transfusion of Nonautologous Frozen Plasma into Peripheral Vein, Percutaneous Approach (ICD-10-PCS; 2017-05-07)
PROC: 0DJ08ZZ Inspection of Upper Intestinal Tract, Via Natural or Artificial Opening Endoscopic (ICD-10-PCS; 2017-05-07)
PROC: 0DJD8ZZ Inspection of Lower Intestinal Tract, Via Natural or Artificial Opening Endoscopic (ICD-10-PCS; 2017-05-09)
DX: K92.2 Gastrointestinal hemorrhage, unspecified (principal); R57.8 Other shock; G31.2 Degeneration of nervous system due to alcohol; D68.4 Acquired coagulation factor deficiency; D69.6 Thrombocytopenia, unspecified; K76.6 Portal hypertension; K64.8 Other hemorrhoids; Z53.20 Procedure and treatment not carried out because of patient's decision for unspecified reasons; K31.89 Other diseases of stomach and duodenum; K28.9 Gastrojejunal ulcer, unspecified as acute or chronic, without hemorrhage or perforation; D62 Acute posthemorrhagic anemia; D50.0 Iron deficiency anemia secondary to blood loss (chronic); K70.30 Alcoholic cirrhosis of liver without ascites; K70.10 Alcoholic hepatitis without ascites; E80.6 Other disorders of bilirubin metabolism; K70.40 Alcoholic hepatic failure without coma; F10.20 Alcohol dependence, uncomplicated; E83.39 Other disorders of phosphorus metabolism; E87.6 Hypokalemia; J45.909 Unspecified asthma, uncomplicated; G40.909 Epilepsy, unspecified, not intractable, without status epilepticus; Z86.73 Personal history of transient ischemic attack (TIA), and cerebral infarction without residual deficits; Z98.84 Bariatric surgery status; F19.10 Other psychoactive substance abuse, uncomplicated; Z83.0 Family history of human immunodeficiency virus [HIV] disease; Z81.3 Family history of other psychoactive substance abuse and dependence; F17.210 Nicotine dependence, cigarettes, uncomplicated; F12.90 Cannabis use, unspecified, uncomplicated; F11.90 Opioid use, unspecified, uncomplicated; Z87.11 Personal history of peptic ulcer disease; Z81.8 Family history of other mental and behavioral disorders; Z91.5 Personal history of self-harm; Z63.8 Other specified problems related to primary support group; E83.42 Hypomagnesemia; K86.1 Other chronic pancreatitis; E83.51 Hypocalcemia; R53.83 Other fatigue; Z91.14 Patient's other noncompliance with medication regimen; N39.0 Urinary tract infection, site not specified; Z86.711 Personal history of pulmonary embolism; Z87.442 Personal history of urinary calculi; Z90.710 Acquired absence of both cervix and uterus
CPT/HCPCS: 80048; 80048 91; 80053; 80076; 80306 90; 81003; 82040; 82140; 82330; 83735; 84100; 84132 91; 85025; 85025 91; 85027; 85610; 85730; 86900; 86901; 86920; 87086; 87641; 93005; 94640; 94640 76; 94799; 99281; 99285; C9113; J0330; J0696; J1940; J2270; J2354; J2405; J2765; J3010; J3411; J3475; J3480; J7030; J7040; J7050; J7120; P9016; P9017

== ENCOUNTER 2017-06-11 04:46 | Emergency (ER) | payer OTHER ==
[~2017-06-11] VITALS: Ht 157.5 cm; Wt 55.5 kg
[~2017-06-11 04:46] MED LIST changes: +FUROSEMIDE20 MG PO; +K-DUR20 MEQ PO; +LACTULOSE10 GM/151 PO; +MAG-OXIDE400 MG PO; +MOTRIN800 MG PO; +SPIRIVA1 INHALATI IH; +TRAZODONE HCL50 MG PO; +XANAX0.5 MG PO; +XIFAXAN550 MG PO
[2017-06-11 05:56] LABS: CHLORIDE 113 mEq/L (99-109); POTASSIUM 3.4 mEq/L (3.7-5.4); SODIUM 143 mEq/L (136-147)
[2017-06-11 05:58] LABS: GLUCOSE 85 mg/dL (70-99)
[2017-06-11 05:59] LABS: ANION GAP 9 MEQ/L (2-14)
[2017-06-11 06:01] LABS: GFR ESTIMATE (CALCULATED) > 59 mL/min/
[2017-06-11 06:02] LABS: UREA NITROGEN (BUN) 5 mg/dL (9-23)
[2017-06-11 06:18] LABS: HEMATOCRIT 27.8 % (36.0-46.0); MCH 31.9 PG (29.0-34.0); MCHC 33.8 G/DL (30.0-36.0); MCV 94.2 FL (83-99); MEAN PLAT.VOLUME 9.7 uM^3 (9.5-12.4); RBC DIS.WIDTH-CV 18.8 % (11.8-14.6); RED BLOOD COUNT 2.95 M/uL (3.80-5.20)
[2017-06-11] MEDS ORDERED: NORCO 5/3251 TABLET PO (06:23)
[2017-06-11] MEDS ORDERED: FUROSEMIDE20 MG PO (06:23)
[2017-06-11 06:37] LABS: PLATELET COUNT 178 K/uL (156-360)
[2017-06-11 07:00] VITALS: BP 111/79
== END 2017-06-11 07:02 | disposition home or self-care (01) ==
LOC: EME 04:46
PROVIDERS: Emergency Medicine
DX: R60.0 Localized edema (principal); D64.9 Anemia, unspecified; R06.02 Shortness of breath; R10.9 Unspecified abdominal pain; J45.909 Unspecified asthma, uncomplicated; I10 Essential (primary) hypertension; Z86.711 Personal history of pulmonary embolism; Z87.442 Personal history of urinary calculi; Z98.84 Bariatric surgery status; F17.200 Nicotine dependence, unspecified, uncomplicated
CPT/HCPCS: 71020; 80048; 83880; 85027; 93005; 99281; 99283